=== PATIENT | male | born 1985 | race Caucasian/White ===

== ENCOUNTER 2016-09-05 06:18 | Inpatient (IN) | payer OTHER ==
[~2016-09-05] VITALS: Ht 182.9 cm; Wt 106.5 kg
[2016-09-05] VITALS (11 sets, daily range): BP systolic 116–147; BP diastolic 65–79; PULSE 72–95; TEMP 97.5–98.1
[2016-09-05] MEDS ORDERED: NORCO 325 MG-7.1 TAB PO (07:28)
[2016-09-05] MEDS ORDERED: PROTONIX 40MG T40 MG PO (07:30)
[2016-09-05] MEDS ORDERED: ZANTAC 150MG T150 MG PO (07:31)
[2016-09-05] MEDS ORDERED: PEPTO BISM525 MG/15 PO (07:32)
[2016-09-06 02:50] VITALS: BP 115/57; PULSE 93; TEMP 98
[2016-09-06 06:24] VITALS: BP 129/76; PULSE 87; TEMP 98.2
== END 2016-09-06 12:00 | disposition home or self-care (01) | DRG 328 ==
LOC: SDCO 06:18 → JCC 06:20 → SDCO 08:30 → JCC 11:45 → SDCO 11:45 → JCC 09-06 12:00
PROVIDERS: Surgery
PROC: 0BUS4JZ (ICD-10-PCS; 2016-09-05)
PROC: 0BUR4JZ (ICD-10-PCS; 2016-09-05)
PROC: 8E0W4CZ Robotic Assisted Procedure of Trunk Region, Percutaneous Endoscopic Approach (ICD-10-PCS; 2016-09-05)
PROC: 0DV44ZZ Restriction of Esophagogastric Junction, Percutaneous Endoscopic Approach (ICD-10-PCS; principal; 2016-09-05 08:30)
DX: K21.0 Gastro-esophageal reflux disease with esophagitis (principal); K44.9 Diaphragmatic hernia without obstruction or gangrene
CPT/HCPCS: C1713; C1781; J0690; J1100; J1885; J2405; J2704; J2710; J2765; J3010; J7042; J7120